=== PATIENT | female | born 1990 | race Caucasian/White ===

== ENCOUNTER 2016-09-22 20:53 | Emergency (ER) | payer MEDICAID ==
[2016-09-23 00:02] LABS: BASOPHIL % 0.4 % (0-2); PLATELET COUNT 289 x10^3mcL (130-400); RED CELL DISTRIBUTION WIDTH 13.6 % (11.5-14.5)
[2016-09-23 00:15] LABS: CALCIUM 8.5 mg/dL (8.5-10.1); CARBON DIOXIDE 28.1 mmol/L (21-32); CHLORIDE SERUM 106 mmol/L (98-107); CREATININE SERUM 0.9 mg/dL (0.6-1.0); GFR1 > 60 mL/min; GLUCOSE SERUM 116 mg/dL (74-106); SODIUM SERUM 142 mmol/L (136-145)
[2016-09-23 00:19] LABS: ALBUMIN 3.5 g/dL (3.4-5.0); ALKALINE PHOSPHATASE 88 U/L (46-116); ALT/SGPT 22 U/L (14-59); AMYLASE 40 U/L (25-115); AST/SGOT 16 U/L (15-37); BILIRUBIN TOTAL 0.2 mg/dL (0.20-1.00); LIPASE 96 IU/L (73-393); TOTAL PROTEIN, SERUM 6.7 g/dL (6.4-8.2)
[2016-09-23 00:31] LABS: microscopic required? NO
[2016-09-23 00:45] LABS: UA SPECIFIC GRAVITY <=1.005 (1.005-1.035); urine erythrocyte NEGATIVE (NEGATIVE)
[2016-09-23 01:57] VITALS: BP 105/65
== END 2016-09-23 01:57 | disposition home or self-care (01) ==
LOC: ED 20:53
PROVIDERS: Emergency Medicine
DX: R11.10 Vomiting, unspecified (principal); R10.13 Epigastric pain
CPT/HCPCS: J2405

== ENCOUNTER 2016-11-27 06:48 | Emergency (ER) | payer MEDICAID ==
[2016-11-27 08:02] LABS: BASOPHIL % 0.3 % (0-2); PLATELET COUNT 276 x10^3mcL (130-400); RED CELL DISTRIBUTION WIDTH 13.1 % (11.5-14.5)
[2016-11-27 08:05] LABS: UA SPECIFIC GRAVITY 1.025 (1.005-1.035); microscopic required? YES; urine erythrocyte 3+ (NEGATIVE)
[2016-11-27 10:20] VITALS: BP 116/87
== END 2016-11-27 10:20 | disposition home or self-care (01) ==
LOC: ED 06:48
PROVIDERS: Specialist
DX: O20.0 Threatened abortion (principal); Z3A.01 Less than 8 weeks gestation of pregnancy
CPT/HCPCS: 36415

== ENCOUNTER 2016-12-13 14:37 | Emergency (ER) | payer MEDICAID ==
[~2016-12-13] VITALS: Ht 170.2 cm; Wt 80.0 kg
[2016-12-13 16:17] LABS: BASOPHIL % 0.2 % (0-2); PLATELET COUNT 273 x10^3mcL (130-400); RED CELL DISTRIBUTION WIDTH 13.3 % (11.5-14.5)
[2016-12-13 16:43] LABS: CALCIUM 8.7 mg/dL (8.5-10.1); CARBON DIOXIDE 23.4 mmol/L (21-32); CHLORIDE SERUM 105 mmol/L (98-107); CREATININE SERUM 0.8 mg/dL (0.6-1.0); GFR1 > 60 mL/min; GLUCOSE SERUM 112 mg/dL (74-106); SODIUM SERUM 138 mmol/L (136-145)
[2016-12-13 16:47] LABS: ALBUMIN 3.4 g/dL (3.4-5.0); ALKALINE PHOSPHATASE 63 U/L (46-116); ALT/SGPT 83 U/L (14-59); AST/SGOT 40 U/L (15-37); BILIRUBIN TOTAL 0.41 mg/dL (0.20-1.00); LIPASE 80 IU/L (73-393); TOTAL PROTEIN, SERUM 6.7 g/dL (6.4-8.2)
[2016-12-13 17:06] LABS: UA SPECIFIC GRAVITY >=1.030 (1.005-1.035); microscopic required? YES; urine erythrocyte NEGATIVE (NEGATIVE)
[2016-12-13 17:34] VITALS: BP 107/60
== END 2016-12-13 17:49 | disposition home or self-care (01) ==
LOC: ED 14:37
PROVIDERS: Emergency Medicine
DX: O26.891 Other specified pregnancy related conditions, first trimester (principal); R51 Headache; O12.11 Gestational proteinuria, first trimester; O21.9 Vomiting of pregnancy, unspecified; Z79.891 Long term (current) use of opiate analgesic; Z79.899 Other long term (current) drug therapy; Z3A.10 10 weeks gestation of pregnancy
CPT/HCPCS: 83880; J2765; J3490; J7030

== ENCOUNTER 2017-05-05 14:58 | Emergency (ER) | payer MEDICAID ==
[2017-05-05 16:16] LABS: BASOPHIL % 0.3 % (0-2); PLATELET COUNT 278 x10^3mcL (130-400); RED CELL DISTRIBUTION WIDTH 13.5 % (11.5-14.5)
[2017-05-05 16:24] LABS: CALCIUM 9.1 mg/dL (8.5-10.1); CARBON DIOXIDE 21.8 mmol/L (21-32); CHLORIDE SERUM 105 mmol/L (98-107); CREATININE SERUM 0.8 mg/dL (0.6-1.0); GFR1 > 60 mL/min; GLUCOSE SERUM 122 mg/dL (74-106); POTASSIUM SERUM 3.3 mmol/L (3.5-5.1); SODIUM SERUM 136 mmol/L (136-145)
[2017-05-05 16:29] LABS: ALKALINE PHOSPHATASE 127 U/L (46-116); ALT/SGPT 32 U/L (14-59); AST/SGOT 21 U/L (15-37); BILIRUBIN TOTAL 0.3 mg/dL (0.20-1.00); LIPASE 81 IU/L (73-393); TOTAL PROTEIN, SERUM 6.4 g/dL (6.4-8.2)
[2017-05-05 16:31] LABS: ALBUMIN 2.5 g/dL (3.4-5.0)
[2017-05-05 17:41] VITALS: BP 106/65
== END 2017-05-05 17:32 | disposition home or self-care (01) ==
LOC: ED 14:58
PROVIDERS: Emergency Medicine
DX: O23.43 Unspecified infection of urinary tract in pregnancy, third trimester (principal); E86.0 Dehydration; E87.6 Hypokalemia; Z3A.30 30 weeks gestation of pregnancy
CPT/HCPCS: J0696; J2405; J7030; Q0092

== ENCOUNTER 2017-11-04 15:11 | Emergency (ER) | payer MEDICAID ==
[~2017-11-04] VITALS: Ht 170.2 cm; Wt 84.0 kg
[2017-11-04 15:29] VITALS: BP 115/75; Ht 170.2 cm; Wt 84.0 kg
[2017-11-04 16:47] LABS: BASOPHIL % 0.3 % (0-2); PLATELET COUNT 255 x10^3mcL (130-400)
[2017-11-04 16:48] LABS: UA SPECIFIC GRAVITY >=1.030 (1.005-1.035); microscopic required? YES; urine erythrocyte NEGATIVE (NEGATIVE)
[2017-11-04 16:49] LABS: RED CELL DISTRIBUTION WIDTH 14.9 % (11.5-14.5)
== END 2017-11-04 17:41 | disposition home or self-care (01) ==
LOC: ED 15:11
PROVIDERS: Emergency Medicine
DX: O23.41 Unspecified infection of urinary tract in pregnancy, first trimester (principal); R42 Dizziness and giddiness; R51 Headache; Z3A.01 Less than 8 weeks gestation of pregnancy
CPT/HCPCS: 36415

== ENCOUNTER 2017-12-26 13:09 | Emergency (ER) | payer SELFPAY ==
[~2017-12-26] VITALS: Ht 170.2 cm; Wt 87.1 kg
[2017-12-26 15:03] LABS: UA SPECIFIC GRAVITY >=1.030 (1.005-1.035); microscopic required? YES; urine erythrocyte NEGATIVE (NEGATIVE)
[2017-12-26 15:25] VITALS: BP 115/70
== END 2017-12-26 15:25 | disposition left against medical advice (07) ==
LOC: ED 13:09
PROVIDERS: Emergency Medicine
DX: O26.892 Other specified pregnancy related conditions, second trimester (principal); O23.41 Unspecified infection of urinary tract in pregnancy, first trimester; H53.149 Visual discomfort, unspecified; R51 Headache; R20.0 Anesthesia of skin; Z3A.13 13 weeks gestation of pregnancy

== ENCOUNTER 2018-03-26 20:43 | Emergency (ER) | payer MEDICAID ==
[~2018-03-26] VITALS: Ht 170.2 cm; Wt 92.1 kg
[2018-03-26 20:59] VITALS: Ht 170.2 cm; Wt 92.1 kg
[2018-03-26 22:19] VITALS: BP 116/69
== END 2018-03-26 22:19 | disposition home or self-care (01) ==
LOC: ED 20:43
DX: O21.2 Late vomiting of pregnancy (principal); O26.892 Other specified pregnancy related conditions, second trimester; R10.13 Epigastric pain; Z3A.25 25 weeks gestation of pregnancy; Z98.890 Other specified postprocedural states
CPT/HCPCS: Q0162

== ENCOUNTER 2018-04-10 21:34 | Emergency (ER) | payer MEDICAID ==
[~2018-04-10] VITALS: Ht 170.2 cm; Wt 94.8 kg
[2018-04-10 21:51] VITALS: Ht 170.2 cm; Wt 94.8 kg
[2018-04-10 23:44] VITALS: BP 107/66
== END 2018-04-10 23:44 | disposition home or self-care (01) ==
LOC: ED 21:34
DX: O26.892 Other specified pregnancy related conditions, second trimester (principal); M54.32 Sciatica, left side; Z98.890 Other specified postprocedural states; Z3A.27 27 weeks gestation of pregnancy
CPT/HCPCS: Q0092

== ENCOUNTER 2018-04-19 20:11 | Emergency (ER) | payer MEDICAID ==
[~2018-04-19] VITALS: Ht 170.2 cm; Wt 95.3 kg
[2018-04-19 22:26] VITALS: BP 110/71
== END 2018-04-19 22:26 | disposition home or self-care (01) ==
LOC: ED 20:11
DX: O92.29 Other disorders of breast associated with pregnancy and the puerperium (principal); L98.8 Other specified disorders of the skin and subcutaneous tissue; Z98.890 Other specified postprocedural states

== ENCOUNTER 2019-03-30 11:30 | Emergency (ER) | payer MEDICAID ==
[~2019-03-30] VITALS: Ht 170.2 cm; Wt 91.9 kg
[2019-03-30 11:41] VITALS: Ht 170.2 cm; Wt 91.9 kg
[2019-03-30 13:25] LABS: CALCIUM 7.9 mg/dL (8.5-10.1); CARBON DIOXIDE 28.3 mmol/L (21-32); CHLORIDE SERUM 106 mmol/L (98-107); CREATININE SERUM 0.9 mg/dL (0.6-1.0); GFR1 > 60 mL/min; GLUCOSE SERUM 86 mg/dL (74-106); SODIUM SERUM 139 mmol/L (136-145)
[2019-03-30 13:29] LABS: ALBUMIN 3.4 g/dL (3.4-5.0); ALKALINE PHOSPHATASE 107 U/L (46-116); ALT/SGPT 22 U/L (14-59); AST/SGOT 19 U/L (15-37); BILIRUBIN TOTAL 0.2 mg/dL (0.20-1.00); TOTAL PROTEIN, SERUM 6.9 g/dL (6.4-8.2)
[2019-03-30 14:45] VITALS: BP 104/58
== END 2019-03-30 14:45 | disposition home or self-care (01) ==
LOC: ED 11:30
PROVIDERS: Emergency Medicine
DX: R00.2 Palpitations (principal); Z98.890 Other specified postprocedural states; Z85.89 Personal history of malignant neoplasm of other organs and systems
CPT/HCPCS: 36415

== ENCOUNTER 2020-05-22 14:49 | Emergency (ER) | payer MEDICAID, SELFPAY ==
[~2020-05-22] VITALS: Ht 170.2 cm; Wt 94.3 kg
[2020-05-22 14:50] VITALS: BP 115/84; Ht 170.2 cm; Wt 94.3 kg
== END 2020-05-22 16:17 | disposition admitted as inpatient to this hospital (09) ==
LOC: ED 14:49
DX: U07.1 COVID-19 (principal); Z98.890 Other specified postprocedural states
CPT/HCPCS: U0003